=== PATIENT | male | born 1950 | race Caucasian/White ===

== ENCOUNTER 2018-09-09 11:40 | Emergency (ER) | payer MEDICARE, OTHER ==
[~2018-09-09] VITALS: Ht 180.3 cm; Wt 135.9 kg
[~2018-09-09 11:40] MED LIST: BENA40TA72 PO; METF-436 PO; NEBI20TA2 PO; OMEP20TA5 PO; SITA1TAB6 PO
[2018-09-09 12:40] LABS: BASOPHILS # (AUTO) 0.1 X10'3 (0-0.2); BASOPHILS % (AUTO) 1.1 % (0-1); EOSINOPHILS # (AUTO) 0.3 X10'3 (0-0.9); EOSINOPHILS % (AUTO) 3.3 % (0-6); HEMATOCRIT 43.1 % (42.0-52.0); HEMOGLOBIN 14.1 g/dl (14.0-17.9); LYMPHOCYTES # (AUTO) 1.1 X10'3 (1.1-4.8); MEAN CORPUSCULAR HEMOGLOBIN 30.3 PG (27.0-31.0); MEAN CORPUSCULAR HGB CONC 32.6 g/dL (33.0-36.5); MEAN PLATELET VOLUME 8.4 FL (7.4-10.4); MONOCYTES # (AUTO) 0.8 X10'3 (0-0.9); MONOCYTES % (AUTO) 10.9 % (2-12); NEUTROPHILS # (AUTO) 5.3 X10'3 (1.8-7.7); NEUTROPHILS % (AUTO) 69.7 % (42-75); PLATELET COUNT 198 X10'3 (140-440); RED BLOOD COUNT 4.64 X10'6 (4.70-6.10); RED CELL DISTRIBUTION WIDTH 18.4 % (11.5-14.5); WHITE BLOOD COUNT 7.6 X10'3 (4.5-11.0)
[2018-09-09 12:58] LABS: ALANINE AMINOTRANSFERASE 18 U/L (12-78); ALBUMIN 3.7 G/DL (3.4-5.0); ALBUMIN/GLOBULIN RATIO 0.8 (1.1-1.5); ALKALINE PHOSPHATASE 79 IU/L (46-116); ANION GAP 12 (8-16); ASPARTATE AMINO TRANSFERASE 14 U/L (10-37); BILIRUBIN,TOTAL 0.9 MG/DL (0.1-1.0); BLOOD UREA NITROGEN 27 MG/DL (7-18); BUN/CREATININE RATIO 19.7 (5.4-32.0); CALCIUM 9.5 MG/DL (8.5-10.1); CHLORIDE 106 MMOL/L (99-107); CREATININE 1.37 MG/DL (0.60-1.10); GLUCOSE 188 MG/DL (70-104); POTASSIUM 4.4 MMOL/L (3.5-5.1); SODIUM 139 MMOL/L (135-145); TOTAL CARBON DIOXIDE 21.2 MMOL/L (24-32); TOTAL PROTEIN 8.3 G/DL (6.4-8.2); eGFR 52 ML/MIN
[2018-09-09 13:00] LABS: INR 1.1 INR; PARTIAL THROMBOPLASTIN TIME 27 SECONDS (22-32)
[2018-09-09 16:43] VITALS: BP 138/86
[2018-09-09] MEDS ORDERED: FURO-150 PO (17:49)
[2018-09-09] MEDS ORDERED: furosemide 10 MG/1 ML 10ml inj IV ONE (18:05)
[2018-09-09] MEDS ORDERED: FURO-149 PO (18:32)
== END 2018-09-09 18:44 | disposition home or self-care (01) ==
LOC: ER 11:40
DX: R60.9 Edema, unspecified (principal); R06.02 Shortness of breath; I10 Essential (primary) hypertension; E11.9 Type 2 diabetes mellitus without complications
CPT/HCPCS: 36415; 71045; 71250; 80053; 84484; 85025; 85610; 85730; 93005; 93971; 96374; 99284; J1940

== ENCOUNTER 2019-07-02 10:24 | Emergency (ER) | payer MEDICARE, OTHER ==
[~2019-07-02] VITALS: Ht 180.3 cm; Wt 134.6 kg
[~2019-07-02 10:24] MED LIST changes: +FURO-149 PO; +FURO-150 PO
[2019-07-02] MEDS ORDERED: furosemide 10 MG/1 ML 10ml inj IV ONE (11:10)
[2019-07-02 11:17] LABS: BASOPHILS # (AUTO) 0.1 X10'3 (0-0.2); BASOPHILS % (AUTO) 1.1 % (0-1); EOSINOPHILS # (AUTO) 0.4 X10'3 (0-0.9); EOSINOPHILS % (AUTO) 4.6 % (0-6); HEMATOCRIT 41.8 % (42.0-52.0); HEMOGLOBIN 13.8 g/dl (14.0-17.9); LYMPHOCYTES # (AUTO) 0.9 X10'3 (1.1-4.8); LYMPHOCYTES % (AUTO) 10.7 % (21-51); MEAN CORPUSCULAR HEMOGLOBIN 30.8 PG (27.0-31.0); MEAN CORPUSCULAR VOLUME 93.2 FL (78-98); MEAN PLATELET VOLUME 7.9 FL (7.4-10.4); MONOCYTES # (AUTO) 0.7 X10'3 (0-0.9); MONOCYTES % (AUTO) 8.3 % (2-12); NEUTROPHILS # (AUTO) 6.6 X10'3 (1.8-7.7); NEUTROPHILS % (AUTO) 75.3 % (42-75); PLATELET COUNT 229 X10'3 (140-440); RED BLOOD COUNT 4.48 X10'6 (4.70-6.10); RED CELL DISTRIBUTION WIDTH 18.5 % (11.5-14.5); WHITE BLOOD COUNT 8.8 X10'3 (4.5-11.0)
[2019-07-02 11:30] LABS: PARTIAL THROMBOPLASTIN TIME 26 SECONDS (22-32)
[2019-07-02 12:19] LABS: ALANINE AMINOTRANSFERASE 15 U/L (12-78); ALBUMIN 3.6 G/DL (3.4-5.0); ALBUMIN/GLOBULIN RATIO 0.8 (1.1-1.5); ALKALINE PHOSPHATASE 79 IU/L (46-116); ANION GAP 8 (8-16); ASPARTATE AMINO TRANSFERASE 17 U/L (10-37); BILIRUBIN,TOTAL 0.7 MG/DL (0.1-1.0); BLOOD UREA NITROGEN 28 MG/DL (7-18); BUN/CREATININE RATIO 17.2 (5.4-32.0); CALCIUM 8.9 MG/DL (8.5-10.1); CHLORIDE 106 MMOL/L (99-107); CREATININE 1.63 MG/DL (0.60-1.10); GLUCOSE 213 MG/DL (70-104); POTASSIUM 4.6 MMOL/L (3.5-5.1); SODIUM 138 MMOL/L (135-145); TOTAL CARBON DIOXIDE 24.1 MMOL/L (24-32); TOTAL PROTEIN 8.2 G/DL (6.4-8.2); eGFR 42 ML/MIN
[2019-07-02 12:25] LABS: MAGNESIUM 1.9 MG/DL (1.5-2.4)
[2019-07-02 12:34] VITALS: BP 141/85
== END 2019-07-02 12:31 | disposition home or self-care (01) ==
LOC: ER 10:25
DX: R60.9 Edema, unspecified (principal); I10 Essential (primary) hypertension; E11.9 Type 2 diabetes mellitus without complications; F41.9 Anxiety disorder, unspecified; Z98.890 Other specified postprocedural states; Z79.899 Other long term (current) drug therapy
CPT/HCPCS: 36415; 71045; 80053; 83735; 83880; 85025; 85610; 85730; 93005; 96374; 99285; J1940

== ENCOUNTER 2019-11-02 12:32 | Outpatient (CLI) | payer MEDICARE, OTHER ==
[~2019-11-02] VITALS: Ht 180.3 cm; Wt 129.3 kg
[2019-11-02] MEDS ORDERED: albuterol 2.5 MG/3 ML nebule NEB ONE (13:20)
== END 2019-11-02 23:59 | disposition home or self-care (01) ==
LOC: RT 12:32
PROVIDERS: ATTEND Internal Medicine Cardiovascular Disease
DX: R06.00 Dyspnea, unspecified (principal); J98.8 Other specified respiratory disorders
CPT/HCPCS: 94010